=== PATIENT | female | born 1945 | race Caucasian/White ===

== ENCOUNTER 2021-08-14 07:46 | Outpatient (CLI) | payer MEDICARE | END 2021-08-14 07:47 | disposition home or self-care (01) | LOC: CSHCT 07:46 | PROVIDERS: ATTEND Internal Medicine | DX: C79.51 Secondary malignant neoplasm of bone (principal); Z85.3 Personal history of malignant neoplasm of breast | CPT/HCPCS: 70470; 74160; 82565 ==

== ENCOUNTER 2022-03-09 09:13 | Outpatient (CLI) | payer MEDICARE ==
[2022-03-09] MEDS ORDERED: Iopamidol 300 61% 100 ML VIAL FS ONE (10:19)
== END 2022-03-09 09:14 | disposition home or self-care (01) ==
LOC: CSHCT 09:13
PROVIDERS: ATTEND Internal Medicine Hematology & Oncology
DX: C79.51 Secondary malignant neoplasm of bone (principal); Z85.3 Personal history of malignant neoplasm of breast; K44.9 Diaphragmatic hernia without obstruction or gangrene
CPT/HCPCS: 71260; 82565; Q9967

== ENCOUNTER 2022-04-30 09:41 | Outpatient (CLI) | payer MEDICARE | END 2022-04-30 09:42 | disposition home or self-care (01) | LOC: CSHRAD 09:41 | PROVIDERS: ATTEND Internal Medicine Gastroenterology | DX: R06.02 Shortness of breath (principal); K44.9 Diaphragmatic hernia without obstruction or gangrene; K52.832 Lymphocytic colitis | CPT/HCPCS: 74246 ==

== ENCOUNTER 2022-07-18 10:25 | Outpatient (CLI) | payer MEDICARE ==
[~2022-07-18 10:25] MED LIST: Iopamidol 300 61% 100 ML VIAL FS ONE
== END 2022-07-18 10:26 | disposition home or self-care (01) ==
LOC: CSHCT 10:25
PROVIDERS: ATTEND Internal Medicine
DX: R06.02 Shortness of breath (principal); C78.6 Secondary malignant neoplasm of retroperitoneum and peritoneum; J90 Pleural effusion, not elsewhere classified; K44.9 Diaphragmatic hernia without obstruction or gangrene
CPT/HCPCS: 71260

== ENCOUNTER 2022-07-22 16:03 | Observation (INO) | payer MEDICARE ==
[~2022-07-22 16:03] MED LIST changes: -Iopamidol 300 61% 100 ML VIAL FS ONE; +Iopamidol 370 76% 100 ML VIAL ONE
[2022-07-22 16:33] LABS: Bilirubin Neg (Negative); Blood, Urine Negative (Negative); Clarity Clear (Clear); Glucose, Urine (Dipstick) Normal (Negative); Ketone, Urine Negative (Negative); Leukocyte Negative (Negative); Nitrite Negative (Negative); Protein, Urine (Dipstick) 15 mg/dl (Neg-Trace); Specific Gravity, Urine 1.015 (1.005-1.030); Urobilinogen Normal mg/dL (Less than 2)
[2022-07-22 16:52] LABS: #Basophils 0.1 10x3/uL (0.0-0.2); #Eosinphils 0.3 10x3/uL (0.0-0.5); #Monocytes 0.9 10x3/uL (0.0-1.1); #Neutrophils 3.5 10x3/uL (1.5-8.4); %Basophils 1.1 % (0.0-2.0); %Lymphocytes 44.7 % (18.0-47.0); %Monocytes 10.2 % (0.0-10.0); %Neutrophils 38.6 % (40.0-75.0); Hemoglobin 10.8 g/dL (12.0-15.5); Mean Corpuscular HGB CONC 30.9 g/dL (32.0-36.0); Mean Corpuscular Hemoglobin 30.8 pg (27.0-33.0); Mean Corpuscular Volume 99.4 fl (81.6-98.3); Mean Platelet Volume 10.1 fl (7.4-10.4); Platelet Count 207 10x3/uL (150-450); RBC Distribution Width 20.2 % (11.5-14.5); Red Blood Cell (RBC) Count 3.51 10x6/uL (3.90-5.03); White Blood Cell (WBC) Count 9.1 10x3/uL (3.5-10.5)
[2022-07-22 17:11] LABS: Platelet Morphology Comment Appears Adequate
[2022-07-22 17:12] LABS: Nucleated RBC 23 % (0)
[2022-07-22 17:31] LABS: ALT (SGPT) 65 U/L (8-55); AST (SGOT) 190 U/L (5-34); Albumin 4.3 g/dL (3.4-4.8); Alkaline Phosphatase 998 U/L (40-110); Anion Gap 21 mmol/L (10-20); BUN (Urea Nitrogen) 33 mg/dL (9.8-20.1); Bilirubin, Total 0.4 mg/dL (0.2-1.2); Calc. Creatinine Clearance 0 mL/min (70-130); Calcium 8.6 mg/dL (7.8-10.44); Carbon Dioxide 17 mmol/L (23-31); Chloride 105 mmol/L (98-107); Estimated GFR 53; Globulin 3.2 g/dL (2.4-3.5); Glucose 122 mg/dL (83-110); Potassium 4.2 mmol/L (3.5-5.1); Protein, Total 7.5 g/dL (5.8-8.1); Sodium 139 mmol/L (136-145)
[2022-07-22] MEDS ORDERED: Guaifenesin DM 100-10/5 ML UDCUP PO PRN (19:17)
[2022-07-22] MEDS ORDERED: Calcium Carbonate 500 MG ChewTAB PO PRN (19:17)
[2022-07-22] MEDS ORDERED: Ondansetron PF 4 MG/2 ML Vial IVP PRN (19:17)
[2022-07-22] MEDS ORDERED: Lactated Ringer's 1,000 ML IV SCH (19:30)
[2022-07-22] MEDS ORDERED: Metoprolol Tartrate 25 MG TAB ONE (20:55)
[2022-07-22] MEDS: Metoprolol Tartrate 25 MG TAB PO SCH (21:08)
[2022-07-23] MEDS ORDERED: Zolpidem Tartrate 5 MG TAB ONE (00:43)
[2022-07-23 03:27] LABS: #Basophils 0.1 10x3/uL (0.0-0.2); #Eosinphils 0.2 10x3/uL (0.0-0.5); #Monocytes 0.9 10x3/uL (0.0-1.1); #Neutrophils 3.6 10x3/uL (1.5-8.4); %Eosinophils 2.8 % (0.0-6.0); %Lymphocytes 36.7 % (18.0-47.0); %Monocytes 11.6 % (0.0-10.0); %Neutrophils 45.4 % (40.0-75.0); Anisocytosis SLIGHT = 6-15 cells (100X) (0-5/hpf); Hemoglobin 9.1 g/dL (12.0-15.5); Hypochromia SLIGHT = 6-15 cells (100X) (0-5/hpf); Mean Corpuscular HGB CONC 30.2 g/dL (32.0-36.0); Mean Corpuscular Hemoglobin 30.4 pg (27.0-33.0); Mean Corpuscular Volume 100.7 fl (81.6-98.3); Mean Platelet Volume 10.4 fl (7.4-10.4); Platelet Count 182 10x3/uL (150-450); Platelet Morphology Comment Appears Adequate; Polychromasia SLIGHT = 2-3 cells (100X) (0-2/hpf); Red Blood Cell (RBC) Count 2.99 10x6/uL (3.90-5.03); White Blood Cell (WBC) Count 7.9 10x3/uL (3.5-10.5)
[2022-07-23 04:18] LABS: ALT (SGPT) 51 U/L (8-55); AST (SGOT) 150 U/L (5-34); Albumin 3.5 g/dL (3.4-4.8); Alkaline Phosphatase 823 U/L (40-110); Anion Gap 16 mmol/L (10-20); BUN (Urea Nitrogen) 30 mg/dL (9.8-20.1); Bilirubin, Total 0.3 mg/dL (0.2-1.2); CK (CPK) 120 U/L (29-168); Calc. Creatinine Clearance 0 mL/min (70-130); Calcium 8.5 mg/dL (7.8-10.44); Carbon Dioxide 19 mmol/L (23-31); Chloride 108 mmol/L (98-107); Estimated GFR 59; Globulin 3.1 g/dL (2.4-3.5); Glucose 101 mg/dL (83-110); Potassium 4.2 mmol/L (3.5-5.1); Protein, Total 6.6 g/dL (5.8-8.1); Sodium 139 mmol/L (136-145)
[2022-07-23] MEDS ORDERED: Lactated Ringer's 1,000 ML IV SCH (09:30)
[2022-07-23 11:23] VITALS: BMI 27.4
[2022-07-23] MEDS: Losartan 25 MG TAB PO SCH (11:31)
[2022-07-23] MEDS: Sertraline 25 MG TAB PO SCH (11:31)
[2022-07-23] MEDS: Multivitamin W/ Minerals 1 TAB PO SCH (11:31)
[2022-07-23] MEDS: Metoprolol Tartrate 25 MG TAB PO SCH ×2 (11:32→20:10)
[2022-07-23] MEDS: Acetaminophen 325 MG TAB PO PRN ×3 (16:25→23:59)
[2022-07-23] MEDS ORDERED: Ibuprofen 400 MG TAB PO SCH (20:00)
[2022-07-23] MEDS: busPIRone HCl 5 MG TAB PO SCH (20:08)
[2022-07-24 05:00] LABS: ALT (SGPT) 48 U/L (8-55); AST (SGOT) 339 U/L (5-34); Albumin 3.3 g/dL (3.4-4.8); Alkaline Phosphatase 1107 U/L (40-110); Anion Gap 16 mmol/L (10-20); BUN (Urea Nitrogen) 26 mg/dL (9.8-20.1); Bilirubin, Total 0.3 mg/dL (0.2-1.2); Calc. Creatinine Clearance 66 mL/min (70-130); Carbon Dioxide 19 mmol/L (23-31); Chloride 108 mmol/L (98-107); Estimated GFR 72; Globulin 2.9 g/dL (2.4-3.5); Glucose 88 mg/dL (83-110); Protein, Total 6.2 g/dL (5.8-8.1); Sodium 139 mmol/L (136-145)
[2022-07-24 05:11] LABS: Hemoglobin 8.8 g/dL (12.0-15.5); MDiff Complete? YES; Mean Corpuscular Hemoglobin 31.2 pg (27.0-33.0); Mean Corpuscular Volume 100.7 fl (81.6-98.3); Mean Platelet Volume 10.4 fl (7.4-10.4); Platelet Count 170 10x3/uL (150-450); RBC Distribution Width 19.9 % (11.5-14.5); Red Blood Cell (RBC) Count 2.82 10x6/uL (3.90-5.03)
[2022-07-24 05:14] LABS: Eosinophils 2 % (0-10); Lymphocytes 34 % (21-51); Metamyelocyte 1 % (0-0); Monocytes 7 % (0-10); Neutrophil 56 % (42-75); Nucleated RBC 32 % (0)
[2022-07-24 05:15] LABS: Anisocytosis SLIGHT = 6-15 cells (100X) (0-5/hpf); Hypochromia SLIGHT = 6-15 cells (100X) (0-5/hpf)
[2022-07-24 05:16] LABS: Platelet Morphology Comment Appears Adequate; Polychromasia SLIGHT = 2-3 cells (100X) (0-2/hpf); White Blood Cell (WBC) Count 5.6 10x3/uL (3.5-10.5)
[2022-07-24] MEDS ORDERED: Senokot 8.6 MG TAB PO PRN (07:53)
[2022-07-24] MEDS: Losartan 25 MG TAB PO SCH (08:41)
[2022-07-24] MEDS: CeleCOXIB 100 MG CAP PO SCH (08:41)
[2022-07-24] MEDS: Letrozole 2.5 MG TAB PO SCH (08:41)
[2022-07-24] MEDS: Sertraline 25 MG TAB PO SCH (08:41)
[2022-07-24] MEDS: Multivitamin W/ Minerals 1 TAB PO SCH (08:41)
[2022-07-24] MEDS: Metoprolol Tartrate 25 MG TAB PO SCH ×2 (08:41→20:46)
[2022-07-24] MEDS: busPIRone HCl 5 MG TAB PO SCH ×2 (08:41→20:47)
[2022-07-24] MEDS ORDERED: Polyethylene Glycol 3350 17 GM Packet PO PRN (11:04)
[2022-07-24] MEDS: Acetaminophen 325 MG TAB PO PRN (16:08)
[2022-07-25] MEDS: Zolpidem Tartrate 5 MG TAB PO PRN ×2 (00:23→22:24)
[2022-07-25 06:43] LABS: Anion Gap 16 mmol/L (10-20); BUN (Urea Nitrogen) 20 mg/dL (9.8-20.1); Calc. Creatinine Clearance 71 mL/min (70-130); Calcium 8.3 mg/dL (7.8-10.44); Carbon Dioxide 21 mmol/L (23-31); Chloride 108 mmol/L (98-107); Estimated GFR 79; Glucose 89 mg/dL (83-110); Potassium 4.1 mmol/L (3.5-5.1); Sodium 141 mmol/L (136-145)
[2022-07-25] MEDS: Losartan 25 MG TAB PO SCH (08:26)
[2022-07-25 08:32] LABS: Hemoglobin 9.2 g/dL (12.0-15.5); Mean Corpuscular HGB CONC 31.4 g/dL (32.0-36.0); Mean Corpuscular Hemoglobin 31.6 pg (27.0-33.0); Mean Corpuscular Volume 100.7 fl (81.6-98.3); Mean Platelet Volume 10.2 fl (7.4-10.4); Platelet Count 167 10x3/uL (150-450); RBC Distribution Width 20.1 % (11.5-14.5); Red Blood Cell (RBC) Count 2.91 10x6/uL (3.90-5.03)
[2022-07-25 08:33] LABS: MDiff Complete? YES
[2022-07-25 08:37] LABS: Eosinophils 7 % (0-10); Lymphocytes 32 % (21-51); Monocytes 8 % (0-10); Nucleated RBC 22 % (0)
[2022-07-25 08:38] LABS: Band 2 % (5-11); Neutrophil 51 % (42-75); Platelet Morphology Comment Appears Adequate
[2022-07-25 08:40] LABS: Hypochromia SLIGHT = 6-15 cells (100X) (0-5/hpf); Macrocytosis SLIGHT = 6-15 cells (100X) (0-5/hpf); Polychromasia SLIGHT = 2-3 cells (100X) (0-2/hpf); White Blood Cell (WBC) Count 7.6 10x3/uL (3.5-10.5)
[2022-07-25] MEDS: Letrozole 2.5 MG TAB PO SCH (09:25)
[2022-07-25] MEDS: busPIRone HCl 5 MG TAB PO SCH ×2 (09:25→22:24)
[2022-07-25] MEDS: Metoprolol Tartrate 25 MG TAB PO SCH ×2 (09:26→22:24)
[2022-07-25] MEDS: Sertraline 25 MG TAB PO SCH (09:26)
[2022-07-25] MEDS: Multivitamin W/ Minerals 1 TAB PO SCH (09:27)
[2022-07-25] MEDS: CeleCOXIB 100 MG CAP PO SCH (09:27)
[2022-07-26 06:11] LABS: Hemoglobin 9.4 g/dL (12.0-15.5); Mean Platelet Volume 10.8 fl (7.4-10.4); Platelet Count 184 10x3/uL (150-450); RBC Distribution Width 20.3 % (11.5-14.5); Red Blood Cell (RBC) Count 3.03 10x6/uL (3.90-5.03); White Blood Cell (WBC) Count 8.6 10x3/uL (3.5-10.5)
[2022-07-26 06:12] LABS: MDiff Complete? YES
[2022-07-26 06:26] LABS: Anion Gap 16 mmol/L (10-20); BUN (Urea Nitrogen) 19 mg/dL (9.8-20.1); Calc. Creatinine Clearance 74 mL/min (70-130); Calcium 8.6 mg/dL (7.8-10.44); Carbon Dioxide 19 mmol/L (23-31); Chloride 108 mmol/L (98-107); Estimated GFR 83; Glucose 93 mg/dL (83-110); Potassium 3.9 mmol/L (3.5-5.1); Sodium 139 mmol/L (136-145)
[2022-07-26 06:40] LABS: Band 2 % (5-11); Eosinophils 3 % (0-10); Lymphocytes 46 % (21-51); Monocytes 12 % (0-10); Neutrophil 37 % (42-75); Nucleated RBC 27 % (0)
[2022-07-26 06:49] LABS: Platelet Morphology Comment Appears Adequate; RBC Morphology Normal
[2022-07-26] MEDS: Levothyroxine Sodium 75 MCG TAB PO SCH (06:57)
[2022-07-26] MEDS: CeleCOXIB 100 MG CAP PO SCH (08:48)
[2022-07-26] MEDS: busPIRone HCl 5 MG TAB PO SCH ×2 (08:50→20:46)
[2022-07-26] MEDS: Sertraline 25 MG TAB PO SCH (08:50)
[2022-07-26] MEDS: Multivitamin W/ Minerals 1 TAB PO SCH (08:50)
[2022-07-26] MEDS: Letrozole 2.5 MG TAB PO SCH (08:51)
[2022-07-26] MEDS: Metoprolol Tartrate 25 MG TAB PO SCH ×2 (08:51→20:47)
[2022-07-26] MEDS: Zolpidem Tartrate 5 MG TAB PO PRN (20:47)
[2022-07-27] MEDS: Levothyroxine Sodium 75 MCG TAB PO SCH (06:14)
[2022-07-27] MEDS: Sertraline 25 MG TAB PO SCH (08:37)
[2022-07-27] MEDS: CeleCOXIB 100 MG CAP PO SCH (08:38)
[2022-07-27] MEDS: busPIRone HCl 5 MG TAB PO SCH (08:39)
[2022-07-27] MEDS: Multivitamin W/ Minerals 1 TAB PO SCH (08:39)
[2022-07-27] MEDS: Letrozole 2.5 MG TAB PO SCH (08:40)
[2022-07-27] MEDS: Metoprolol Tartrate 25 MG TAB PO SCH (08:40)
[2022-07-27 08:59] VITALS: TEMP 98.4
[2022-07-27] MEDS ORDERED: Folic Acid 1 MG TAB PO SCH (09:00)
[2022-07-27 12:58] VITALS: BP 113/74
== END 2022-07-27 15:10 | disposition home health service (06) ==
LOC: CSHERS 16:03 → INTOOBSV 21:01 → CSHERHOLD 21:01 → CSHTELE 07-23 08:48
PROVIDERS: ADMIT Internal Medicine; ATTEND Family Medicine
DX: R06.02 Shortness of breath (principal); R55 Syncope and collapse; R42 Dizziness and giddiness; R00.0 Tachycardia, unspecified; E11.9 Type 2 diabetes mellitus without complications; E03.9 Hypothyroidism, unspecified; F32.A Depression, unspecified; I10 Essential (primary) hypertension; N19 Unspecified kidney failure; D63.8 Anemia in other chronic diseases classified elsewhere; J90 Pleural effusion, not elsewhere classified; E78.5 Hyperlipidemia, unspecified; K21.9 Gastro-esophageal reflux disease without esophagitis; K44.9 Diaphragmatic hernia without obstruction or gangrene; R79.89 Other specified abnormal findings of blood chemistry; D50.9 Iron deficiency anemia, unspecified; C79.51 Secondary malignant neoplasm of bone; C50.919 Malignant neoplasm of unspecified site of unspecified female breast; R74.01 Elevation of levels of liver transaminase levels; Z90.89 Acquired absence of other organs; Z90.13 Acquired absence of bilateral breasts and nipples; Z79.899 Other long term (current) drug therapy; Z88.5 Allergy status to narcotic agent; Z88.8 Allergy status to other drugs, medicaments and biological substances
CPT/HCPCS: 36415; 70450; 70551; 71045; 71275; 80048; 80053; 81003; 82274; 82550; 83605; 83880; 84443; 84484; 85025; 87633; 93005; 93010; 93306; 96372; 96374; G0378; J1650; J2405; J7120; Q9967

== ENCOUNTER 2022-08-17 16:36 | Inpatient (IN) | payer MEDICARE ==
[2022-08-17 17:35] LABS: #Monocytes 0.1 10x3/uL (0.0-1.1); #Neutrophils 2.5 10x3/uL (1.5-8.4); %Basophils 0.3 % (0.0-2.0); %Eosinophils 1.1 % (0.0-6.0); %Lymphocytes 29.7 % (18.0-47.0); %Monocytes 2.4 % (0.0-10.0); Hemoglobin 8.9 g/dL (12.0-15.5); Mean Corpuscular HGB CONC 31.1 g/dL (32.0-36.0); Mean Corpuscular Volume 99.7 fl (81.6-98.3); Platelet Count 148 10x3/uL (150-450); RBC Distribution Width 20.6 % (11.5-14.5); Red Blood Cell (RBC) Count 2.87 10x6/uL (3.90-5.03); White Blood Cell (WBC) Count 3.8 10x3/uL (3.5-10.5)
[2022-08-17 17:50] LABS: ALT (SGPT) 61 U/L (8-55); AST (SGOT) 227 U/L (5-34); Albumin 3.1 g/dL (3.4-4.8); Alkaline Phosphatase 990 U/L (40-110); Anion Gap 19 mmol/L (10-20); BUN (Urea Nitrogen) 13 mg/dL (9.8-20.1); Bilirubin, Total 0.4 mg/dL (0.2-1.2); Calc. Creatinine Clearance 0 mL/min (70-130); Carbon Dioxide 17 mmol/L (23-31); Chloride 111 mmol/L (98-107); Estimated GFR 87; Globulin 2.8 g/dL (2.4-3.5); Glucose 101 mg/dL (83-110); Lipase 15 U/L (8-78); Potassium 3.9 mmol/L (3.5-5.1); Protein, Total 5.9 g/dL (5.8-8.1); Sodium 143 mmol/L (136-145)
[2022-08-17 17:56] LABS: Calcium 4.8 mg/dL (7.8-10.44)
[2022-08-17] MEDS ORDERED: Lorazepam 2 MG/ML VIAL ONE (18:29)
[2022-08-17 19:31] LABS: Anion Gap 16 mmol/L (10-20); BUN (Urea Nitrogen) 14 mg/dL (9.8-20.1); Calc. Creatinine Clearance 0 mL/min (70-130); Carbon Dioxide 18 mmol/L (23-31); Chloride 111 mmol/L (98-107); Estimated GFR 84; Glucose 98 mg/dL (83-110); Potassium 3.4 mmol/L (3.5-5.1); Sodium 142 mmol/L (136-145)
[2022-08-17 19:32] LABS: Calcium 4.9 mg/dL (7.8-10.44)
[2022-08-17] MEDS ORDERED: Magnesium 2 GM/50 ML BAG (IN WATER) ONE (20:03)
[2022-08-17 20:08] LABS: Magnesium 1.7 mg/dL (1.6-2.6)
[2022-08-17 20:25] LABS: Phosphorus 2.7 mg/dL (2.3-4.7)
[2022-08-17] MEDS ORDERED: Calcium Gluc 4.6 MEQ/10 ML (100 MG/ML) FS SCH (20:45)
[2022-08-17] MEDS ORDERED: Acetaminophen 325 MG TAB PO PRN (21:46)
[2022-08-17] MEDS ORDERED: Calcium Gluconate 4.6 MEQ in Sodium Chloride 0.9% 100 ML IVPB SCH (22:00)
[2022-08-17 22:16] LABS: Bilirubin Neg (Negative); Blood, Urine Negative (Negative); Clarity Clear (Clear); Glucose, Urine (Dipstick) Normal (Negative); Ketone, Urine Negative (Negative); Leukocyte Negative (Negative); Nitrite Negative (Negative); Protein, Urine (Dipstick) 15 mg/dl (Neg-Trace); Urobilinogen Normal mg/dL (Less than 2)
[2022-08-17 23:50] VITALS: BMI 26.5
[2022-08-18] MEDS: Sodium Chloride 0.9% 1,000 ML IV SCH ×2 (00:01→15:04)
[2022-08-18] MEDS: Potassium Chloride 20 MEQ TAB PO SCH ×2 (00:01→02:19)
[2022-08-18] MEDS: cefTRIAXone\\ROCEPHIN 2 GM in Sodium Chloride 0.9% 100 ML IVPB SCH ×2 (00:08→22:19)
[2022-08-18] MEDS: Doxycycline 100 MG in Sodium Chloride 0.9% 100 ML IVPB SCH ×3 (00:17→23:45)
[2022-08-18 03:28] LABS: #Monocytes 0.1 10x3/uL (0.0-1.1); #Neutrophils 2.3 10x3/uL (1.5-8.4); %Basophils 0.3 % (0.0-2.0); %Lymphocytes 37.7 % (18.0-47.0); %Monocytes 2.3 % (0.0-10.0); %Neutrophils 58.4 % (40.0-75.0); Hemoglobin 8.3 g/dL (12.0-15.5); Platelet Count 129 10x3/uL (150-450); RBC Distribution Width 20.4 % (11.5-14.5); Red Blood Cell (RBC) Count 2.68 10x6/uL (3.90-5.03); White Blood Cell (WBC) Count 3.9 10x3/uL (3.5-10.5)
[2022-08-18 03:47] LABS: Anion Gap 17 mmol/L (10-20); BUN (Urea Nitrogen) 12 mg/dL (9.8-20.1); Calc. Creatinine Clearance 75 mL/min (70-130); Carbon Dioxide 17 mmol/L (23-31); Chloride 111 mmol/L (98-107); Estimated GFR 87; Glucose 85 mg/dL (83-110); Potassium 3.6 mmol/L (3.5-5.1); Sodium 141 mmol/L (136-145)
[2022-08-18 04:11] LABS: Cardiac Risk 3.6 (Less than 4.5); Cholesterol 146 mg/dl (< 200 Desired); HDL Cholesterol 41 mg/dL (>60 Neg Risk); LDL Cholesterol, Calculated 76 mg/dL; Triglycerides 144 mg/dL (Less than 150)
[2022-08-18] MEDS ORDERED: Calcium Gluc 4.6 MEQ/10 ML (100 MG/ML) SLOW IVP SCH (04:15)
[2022-08-18] MEDS ORDERED: Calcium Carbonate 500 MG ChewTAB PO SCH (04:30)
[2022-08-18] MEDS ORDERED: Calcium Gluconate 9.2 MEQ in Sodium Chloride 0.9% 100 ML IVPB SCH (04:30)
[2022-08-18] MEDS: Levothyroxine Sodium 100 MCG TAB PO SCH (05:45)
[2022-08-18 06:20] LABS: Legionella Urinary Ag Negative (Negative)
[2022-08-18 06:21] LABS: Strep pneumo Urine Ag NEGATIVE (NEGATIVE)
[2022-08-18] MEDS ORDERED: Promethazine HCl 12.5 MG, Admixture Fee 1 EACH in Sodium Chloride 0.9% 50 ML IVPB SCH ×2 (07:15→10:00)
[2022-08-18] MEDS ORDERED: Loperamide HCl 2 MG CAP PO SCH (07:15)
[2022-08-18] MEDS ORDERED: Potassium Chloride 20 MEQ in Premix Bag 1 BAG IVPB SCH (07:30)
[2022-08-18] MEDS: Sertraline 100 MG TAB PO SCH (08:48)
[2022-08-18] MEDS: Metoprolol Tartrate 25 MG TAB PO SCH ×2 (08:48→22:13)
[2022-08-18] MEDS: Letrozole 2.5 MG TAB PO SCH (08:49)
[2022-08-18] MEDS: busPIRone HCl 5 MG TAB PO SCH ×2 (08:49→22:12)
[2022-08-18] MEDS: Folic Acid 1 MG TAB PO SCH (08:49)
[2022-08-18] MEDS: Ergocalciferol 1.25 MG(50,000 UNITS) CAP PO SCH (08:49)
[2022-08-18] MEDS: Multivitamin W/ Minerals 1 TAB PO SCH (08:49)
[2022-08-18] MEDS ORDERED: PALBOCICLIB 125 MG PO SCH (09:00)
[2022-08-18] MEDS ORDERED: Calcium Gluconate 4.6 MEQ in Sodium Chloride 0.9% 100 ML IVPB SCH (09:43)
[2022-08-18] MEDS ORDERED: Magnevist 469MG/ML 20 ML VIAL ONE (10:22)
[2022-08-18 11:01] LABS: Anion Gap 17 mmol/L (10-20); BUN (Urea Nitrogen) 11 mg/dL (9.8-20.1); Calc. Creatinine Clearance 75 mL/min (70-130); Carbon Dioxide 19 mmol/L (23-31); Chloride 112 mmol/L (98-107); Estimated GFR 87; Glucose 84 mg/dL (83-110); Magnesium 1.9 mg/dL (1.6-2.6); Phosphorus 2.8 mg/dL (2.3-4.7); Potassium 4.6 mmol/L (3.5-5.1); Sodium 143 mmol/L (136-145)
[2022-08-18 11:08] LABS: Calcium 5.5 mg/dL (7.8-10.44)
[2022-08-18] MEDS ORDERED: Lorazepam 2 MG/ML VIAL SLOW IVP PRN (11:36)
[2022-08-18] MEDS ORDERED: levETIRAcetam 500 MG/5 ML VIAL SLOW IVP SCH (11:45)
[2022-08-18 12:41] LABS: Lactic Acid 1.4 mmol/L (0.5-2.2)
[2022-08-18 12:46] LABS: Anion Gap 20 mmol/L (10-20); BUN (Urea Nitrogen) 11 mg/dL (9.8-20.1); Calc. Creatinine Clearance 72 mL/min (70-130); Carbon Dioxide 14 mmol/L (23-31); Chloride 111 mmol/L (98-107); Estimated GFR 84; Glucose 87 mg/dL (83-110); Potassium 4.4 mmol/L (3.5-5.1); Sodium 141 mmol/L (136-145)
[2022-08-18 12:56] LABS: Calcium 5.4 mg/dL (7.8-10.44)
[2022-08-18] MEDS: Calcium Carbonate 500 MG ChewTAB PO SCH ×2 (14:23→22:19)
[2022-08-18] MEDS ORDERED: CALCIUM GLUC IVPB SCH (15:00)
[2022-08-18] MEDS ORDERED: Calcium Gluconate 9.2 MEQ, Admixture Fee 1 EACH in Sodium Chloride 0.9% 100 ML IVPB SCH (15:00)
[2022-08-18] MEDS ORDERED: NS 2 GM IVPB SCH (15:00)
[2022-08-18 17:23] LABS: Critical Notified Time 1140; Puncture Site OTHER
[2022-08-18 17:25] LABS: Actual Bicarbonate (HCO3v) 14.9 mEq/L (22-28); Base Excess -10.2 mEq/L (-2 - +2); Hematocrit-VBG 30 % (36.0-47.0); Hemoglobin (Hb) 10.3 g/dL (11.7-16.1)
[2022-08-18 17:26] LABS: Calcium, Ionized (venous) 0.64 mmol/L (1.16-1.32); Chloride (VBG) 110 mmol/L (98-106); Potassium (VBG) 4.11 mmol/L (3.70-5.30); Sodium 140.5 mmol/L (133-146)
[2022-08-18 17:27] LABS: Draw Time: 1125
[2022-08-18] MEDS: Ondansetron PF 4 MG/2 ML Vial IVP PRN ×2 (17:40→22:52)
[2022-08-18] MEDS: levETIRAcetam 500 MG/5 ML VIAL SLOW IVP SCH (22:14)
[2022-08-19] MEDS: Sodium Chloride 0.9% 1,000 ML IV SCH ×3 (01:12→21:48)
[2022-08-19] MEDS ORDERED: Loperamide HCl 2 MG CAP PO SCH (03:00)
[2022-08-19 03:59] LABS: Anion Gap 18 mmol/L (10-20); BUN (Urea Nitrogen) 8 mg/dL (9.8-20.1); Calc. Creatinine Clearance 78 mL/min (70-130); Carbon Dioxide 14 mmol/L (23-31); Chloride 114 mmol/L (98-107); Estimated GFR 89; Glucose 74 mg/dL (83-110); Potassium 4.2 mmol/L (3.5-5.1); Sodium 142 mmol/L (136-145)
[2022-08-19 04:10] LABS: Hemoglobin 8.5 g/dL (12.0-15.5); Mean Corpuscular HGB CONC 30.5 g/dL (32.0-36.0); Mean Corpuscular Hemoglobin 30.9 pg (27.0-33.0); Mean Corpuscular Volume 101.5 fl (81.6-98.3); Mean Platelet Volume 10.2 fl (7.4-10.4); Platelet Count 118 10x3/uL (150-450); RBC Distribution Width 20.5 % (11.5-14.5); Red Blood Cell (RBC) Count 2.75 10x6/uL (3.90-5.03); White Blood Cell (WBC) Count 3.3 10x3/uL (3.5-10.5)
[2022-08-19 04:11] LABS: MDiff Complete? YES
[2022-08-19 04:13] LABS: Calcium 5.6 mg/dL (7.8-10.44)
[2022-08-19 05:11] LABS: Band 6 % (5-11); Eosinophils 2 % (0-10); Lymphocytes 41 % (21-51); Monocytes 2 % (0-10); Neutrophil 49 % (42-75)
[2022-08-19 05:13] LABS: Anisocytosis SLIGHT = 6-15 cells (100X) (0-5/hpf); Hypochromia SLIGHT = 6-15 cells (100X) (0-5/hpf); Macrocytosis SLIGHT = 6-15 cells (100X) (0-5/hpf); Microcytosis SLIGHT = 6-15 cells (100X) (0-5/hpf); Platelet Morphology Comment Appears Decreased
[2022-08-19] MEDS: Calcium Carbonate 500 MG ChewTAB PO SCH ×3 (06:02→21:12)
[2022-08-19] MEDS: Levothyroxine Sodium 100 MCG TAB PO SCH (06:03)
[2022-08-19] MEDS ORDERED: Calcium Gluconate 9.2 MEQ, Admixture Fee 1 EACH in Sodium Chloride 0.9% 100 ML IVPB SCH ×2 (08:30→16:00)
[2022-08-19] MEDS: Sertraline 100 MG TAB PO SCH (08:46)
[2022-08-19] MEDS: Metoprolol Tartrate 25 MG TAB PO SCH ×2 (08:46→21:08)
[2022-08-19] MEDS: busPIRone HCl 5 MG TAB PO SCH ×2 (08:46→21:08)
[2022-08-19] MEDS: Folic Acid 1 MG TAB PO SCH (08:46)
[2022-08-19] MEDS: Ergocalciferol 1.25 MG(50,000 UNITS) CAP PO SCH (08:46)
[2022-08-19] MEDS: Multivitamin W/ Minerals 1 TAB PO SCH (08:47)
[2022-08-19] MEDS: Letrozole 2.5 MG TAB PO SCH (08:47)
[2022-08-19] MEDS: levETIRAcetam 500 MG/5 ML VIAL SLOW IVP SCH ×2 (08:48→21:08)
[2022-08-19] MEDS: Doxycycline 100 MG in Sodium Chloride 0.9% 100 ML IVPB SCH (11:10)
[2022-08-19] MEDS: Ondansetron PF 4 MG/2 ML Vial IVP PRN (13:19)
[2022-08-19 14:59] LABS: Calcium 5.5 mg/dL (7.8-10.44)
[2022-08-19] MEDS ORDERED: NS 2 GM IVPB SCH (15:45)
[2022-08-19] MEDS ORDERED: Calcium Gluconate 9.2 MEQ in Sodium Chloride 0.9% 100 ML IVPB SCH ×2 (15:45→21:15)
[2022-08-19] MEDS ORDERED: CALCIUM GLUC IVPB SCH (15:45)
[2022-08-19] MEDS ORDERED: Calcitriol 0.25 MCG CAP PO SCH (17:30)
[2022-08-19 20:12] LABS: Calcium 5.5 mg/dL (7.8-10.44)
[2022-08-19] MEDS ORDERED: Melatonin 3 MG TAB PO SCH (21:45)
[2022-08-20 03:47] LABS: Hemoglobin 8.4 g/dL (12.0-15.5); MDiff Complete? YES; Mean Corpuscular HGB CONC 31.6 g/dL (32.0-36.0); Mean Corpuscular Hemoglobin 31.3 pg (27.0-33.0); Mean Corpuscular Volume 99.3 fl (81.6-98.3); Mean Platelet Volume 11.8 fl (7.4-10.4); Platelet Count 111 10x3/uL (150-450); RBC Distribution Width 19.9 % (11.5-14.5); Red Blood Cell (RBC) Count 2.68 10x6/uL (3.90-5.03); White Blood Cell (WBC) Count 2.9 10x3/uL (3.5-10.5)
[2022-08-20 03:57] LABS: Anion Gap 17 mmol/L (10-20); BUN (Urea Nitrogen) 8 mg/dL (9.8-20.1); Calc. Creatinine Clearance 84 mL/min (70-130); Carbon Dioxide 16 mmol/L (23-31); Chloride 113 mmol/L (98-107); Estimated GFR 91; Glucose 79 mg/dL (83-110); Sodium 142 mmol/L (136-145)
[2022-08-20 04:06] LABS: Calcium 5.3 mg/dL (7.8-10.44)
[2022-08-20 05:02] LABS: Eosinophils 1 % (0-10); Lymphocytes 39 % (21-51); Monocytes 8 % (0-10); Neutrophil 52 % (42-75)
[2022-08-20 05:05] LABS: Macrocytosis SLIGHT = 6-15 cells (100X) (0-5/hpf); Ovalocytes SLIGHT = 2-5 cells (100X) (0-1/hpf); Platelet Morphology Comment Appears Decreased
[2022-08-20] MEDS: Calcium Carbonate 500 MG ChewTAB PO SCH (05:15)
[2022-08-20] MEDS: Levothyroxine Sodium 100 MCG TAB PO SCH (05:15)
[2022-08-20] MEDS ORDERED: Calcium Gluconate 4.6 MEQ in Sodium Chloride 0.9% 100 ML IVPB SCH ×2 (06:15→08:30)
[2022-08-20 07:58] VITALS: TEMP 97.8
[2022-08-20] MEDS: busPIRone HCl 5 MG TAB PO SCH (08:35)
[2022-08-20] MEDS: Multivitamin W/ Minerals 1 TAB PO SCH (08:36)
[2022-08-20] MEDS: Letrozole 2.5 MG TAB PO SCH (08:36)
[2022-08-20] MEDS: Folic Acid 1 MG TAB PO SCH (08:36)
[2022-08-20] MEDS: levETIRAcetam 500 MG/5 ML VIAL SLOW IVP SCH (08:36)
[2022-08-20] MEDS: Metoprolol Tartrate 25 MG TAB PO SCH (08:36)
[2022-08-20] MEDS: Sertraline 100 MG TAB PO SCH (08:41)
[2022-08-20] MEDS ORDERED: Calcitriol 0.25 MCG CAP PO SCH (09:00)
[2022-08-20 09:31] VITALS: BP 158/71
[2022-08-21 13:41] LABS: Campy jejuni + coli by PCR Negative (Negative); STEC Shiga Toxin 1+2 Negative (Negative); Salmonella spp. by PCR Negative (Negative); Shigella spp + EIEC by PCR Negative (Negative)
== END 2022-08-20 11:43 | disposition short-term general hospital (02) | DRG 640 ==
LOC: CSHERS 16:36 → CSHICU 23:46
PROVIDERS: ADMIT Family Medicine; ATTEND Internal Medicine
DX: E83.51 Hypocalcemia (principal); G03.9 Meningitis, unspecified; J18.9 Pneumonia, unspecified organism; C79.51 Secondary malignant neoplasm of bone; C79.31 Secondary malignant neoplasm of brain; I45.81 Long QT syndrome; C50.919 Malignant neoplasm of unspecified site of unspecified female breast; K21.9 Gastro-esophageal reflux disease without esophagitis; E03.9 Hypothyroidism, unspecified; I10 Essential (primary) hypertension; E87.6 Hypokalemia; D53.9 Nutritional anemia, unspecified; R56.9 Unspecified convulsions; Z88.5 Allergy status to narcotic agent; Z90.13 Acquired absence of bilateral breasts and nipples; Z98.890 Other specified postprocedural states; Z90.89 Acquired absence of other organs; Z82.49 Family history of ischemic heart disease and other diseases of the circulatory system; Z88.8 Allergy status to other drugs, medicaments and biological substances; Z79.890 Hormone replacement therapy; Z79.899 Other long term (current) drug therapy; E78.5 Hyperlipidemia, unspecified
CPT/HCPCS: 36415; 36416; 70450; 70553; 71045; 72125; 72128; 80048; 80053; 80061; 81003; 82040; 82140; 82274; 82306; 82330; 82805; 83605; 83630; 83690; 83735; 83970; 84100; 84145; 84439; 84443; 84484; 85025; 86140; 87040; 87324; 87449; 87505; 87899; 93005; 93010; 94760; 94762; 96365; 96375; A9579; J0612; J0696; J1650; J1953; J2060; J2405; J2550; J3475; J3480; J3490; J7050